=== PATIENT | female | born 1990 | race Caucasian/White ===

== ENCOUNTER → 2019-10-26 08:09 | Outpatient (CLI) | payer OTHER, SELFPAY ==
[2019-10-26 14:42] LABS: Urine N gonorrhoeae NOT DETECTED
[2019-10-26 14:47] LABS: Urine Chlamydia NOT DETECTED
== END ==
PROVIDERS: Visit Provider Obstetrics & Gynecology
DX: Z11.3 Encounter for screening for infections with a predominantly sexual mode of transmission (principal)
CPT/HCPCS: 87491; 87591

== ENCOUNTER → 2019-11-23 08:32 | Outpatient (CLI) | payer OTHER, SELFPAY ==
[2019-11-23 09:44] LABS: Appearance Urine UA CLEAR; Bilirubin Urine UA NEGATIVE (NEGATIVE); Color Urine UA YELLOW; Glucose Urine UA NEGATIVE (Negative); Ketones Urine UA NEGATIVE (NEGATIVE); Leukocyte Esterase Urine UA NEGATIVE (NEGATIVE); Nitrite Urine UA NEGATIVE (Negative); Occult Blood Urine UA NEGATIVE (Negative); Protein Urine UA NEGATIVE (Negative); Specific Gravity Urine UA 1.025 (1.000-1.035); Urobilinogen Urine UA 0.2 E.U./dL (0.2)
[2019-11-23 09:45] LABS: pH Urine UA 5.5 (4.5-8.0)
[2019-11-23 09:50] LABS: Add Manual Diff / Slide Review NO; Basophils Absolute Auto 0 /uL (0-100); Basophils Percent Auto 0.3 % (0-2); Eosinophils Absolute Auto 100 /uL (0-450); Eosinophils Percent Auto 1.2 % (2-4); Hematocrit 41.5 % (36-46); Hemoglobin 14.4 g/dL (12.0-16.0); Lymphocytes Absolute Auto 1600 /uL (1100-4500); Lymphocytes Percent Auto 19.1 % (25-40); Mean Corpuscular HGB Conc 34.8 % (30-36); Mean Corpuscular Hemoglobin 32.7 PG (26-34); Mean Corpuscular Volume 94.1 fL (80-100); Monocytes Absolute Auto 400 /uL (0-900); Monocytes Percent Auto 4.9 % (3-14); Neutrophils Absolute Auto 6300 /uL (1500-7000); Neutrophils Percent Auto 74.5 % (50-75); Platelet Count 257 X10^3/uL (150-400); Red Blood Cell Count 4.41 X10^6/uL (4.0-5.2); Red Cell Distribution Width 12.6 % (11.6-14.8); White Blood Cell Count 8.5 X10^3/uL (4.5-11.0)
[2019-11-23 17:34] LABS: Miscellaneous to LabCorp KIT TEST
[2019-11-24 05:10] LABS: RPR Screen Non Reactive (Non Reactive)
[2019-11-24 08:40] LABS: Varicella IgG Antibody 796 index (Immune >165)
[2019-11-24 16:24] LABS: Hepatitis B Surface Antigen NEGATIVE s/c (NEGATIVE); Rubella Antibody IgG 34.5 IU/mL (>15)
[2019-11-24 16:41] LABS: HIV 1 & 2 Ab/Ag 4th Gen Combo NEGATIVE (NEGATIVE); Hep C Virus Ab w/Reflex Quant NEGATIVE s/c (NEGATIVE)
== END ==
PROVIDERS: PCP Nurse Practitioner Family; Referring Provider Obstetrics & Gynecology; Visit Provider Obstetrics & Gynecology
DX: Z34.01 Encounter for supervision of normal first pregnancy, first trimester (principal); Z36.0 Encounter for antenatal screening for chromosomal anomalies
CPT/HCPCS: 36415; 80055; 81003; 86787; 86803; 86850; 86900; 86901; 87086; 87389

== ENCOUNTER → 2019-12-21 09:42 | Outpatient (CLI) | payer OTHER, SELFPAY ==
[2019-12-27 07:39] LABS: AFP Value 33.5 ng/mL (.); Insulin Dep Diabetes No (.); OSBR Risk 1IN 9231 (.); Results Report (.); Test Results *Screen Negative* (.)
== END ==
PROVIDERS: PCP Nurse Practitioner Family; Referring Provider Obstetrics & Gynecology; Visit Provider Obstetrics & Gynecology
DX: Z34.02 Encounter for supervision of normal first pregnancy, second trimester (principal); Z3A.16 16 weeks gestation of pregnancy
CPT/HCPCS: 36415; 82105

== ENCOUNTER → 2020-01-18 07:49 | Outpatient (CLI) | payer OTHER, SELFPAY ==
--- NOTE | 2020-01-18 07:50 | DI.US.S_ITS ---
PROCEDURE: US OB >= 14 WEEKS FETUS INDICATIONS: ANATOMY OUTSIDE/PRIOR DATING DATA: Last menstrual period (LMP): The 08/31/2019. LMP-based estimated date of delivery (NOE): 06/06/2020. First dating scan (date and location): 10/26/2019. Estimated date of delivery (NOE) from first dating scan: 06/06/2020. TECHNIQUE: Real-time scanning was performed of the fetus, with image documentation and biometric measurements. Endovaginal scanning: Not performed. COMPARISON: [facility], , OB <= 14 WEEKS FETUS, 11/23/2019, 8:25. FINDINGS: General: A single living intrauterine gestation is present. Presentation: Transverse, head maternal right. Placenta: Placental position is anterior, low lying. The inferior margin is 1.5 cm from the internal cervical os. Amniotic fluid index: 13.8 cm, normal range is 5-24 cm. heart rate: 144 beats per minute. Maternal cervical canal: 4.2 cm long. Normal lower limit is 2.5 cm. biometrics: Biparietal diameter: 4.8 cm, 20 weeks 4 days Head circumference: 18.0 cm, 20 weeks 3 days Abdominal circumference: 15.2 cm, 20 weeks 3 days Femur length: 3.3 cm, 20 weeks 3 days Estimated gestational age from initial scan: 20 weeks 0 days Composite gestational age from present scan: 20 weeks 3 days Estimated weight and percentile: 351 g, 68th percentile Measurement variability for biometric dating: +/- 7 days from 14 weeks to 15 weeks 6 days gestation, +/- 10 days from 16 weeks to 21 weeks 6 days gestation, +/- 2 weeks from 22 weeks to 27 weeks 6 days gestation, +/- 3 weeks for 28 weeks gestation or later. weight reference: 4500 g or EFW >90/95% is considered macrosomia or large for gestational age. EFW <10% is small for gestational age. EFW 5% or less is considered intra-uterine growth restriction. Anatomic survey: Neuro: Ventricles are non-dilated at less than 10 mm. Cisterna magna is normal at 3-11 mm. Cerebellum is normal in size and morphology. Nuchal skin fold: Normal at less than 6 mm between 14-21 weeks gestational age. Face: Nose and lips, facial profile are normal. Spine: No evidence for spina bifida. Heart: 4-chambered heart is present, with normal ventricular outflow tracts. Echogenic focus in the left ventricle measuring 0.3 cm. Diaphragm: Diaphragm is intact. Stomach: Left-sided stomach is present. Kidneys: No hydronephrosis. Normal is less than 5 mm in 2nd trimester, less than 7 mm in 3rd trimester. Cord: 3-vessel cord has orthotopic insertion. Bladder: Normal in size. Extremities: All 4 extremities identified. IMPRESSION: 1. [place] living intrauterine at 20 weeks 3 days based on today's ultrasound. This is concordant with the prior ultrasound. There is expected interval growth. 2. Normal amniotic fluid. Low lying placenta. -follow-up OB ultrasound is recommended. 3. Echogenic focus in the left ventricle noted. This is a soft marker for aneuploidy. -Recommend clinical correlation. Otherwise normal and complete anatomic survey. Dictated by: Harsha Ward M.D. on 01/18/2020 at 9:37 Approved by: Harsha Ward M.D. on 01/18/2020 at 9:44
== END ==
PROVIDERS: PCP Nurse Practitioner Family; Referring Provider Obstetrics & Gynecology; Visit Provider Obstetrics & Gynecology
DX: Z34.92 Encounter for supervision of normal pregnancy, unspecified, second trimester (principal); Z3A.20 20 weeks gestation of pregnancy
CPT/HCPCS: 76811

== ENCOUNTER → 2020-03-14 14:16 | Outpatient (CLI) | payer OTHER, SELFPAY ==
[2020-03-14 16:28] LABS: Hematocrit 36.9 % (36-46); Hemoglobin 12.6 g/dL (12.0-16.0)
[2020-03-14 16:48] LABS: GTT (PREG) 1 Hour PP 50gm Dose 142 mg/dL (76-139)
== END ==
PROVIDERS: PCP Nurse Practitioner Family; Referring Provider Obstetrics & Gynecology; Visit Provider Obstetrics & Gynecology
DX: Z34.02 Encounter for supervision of normal first pregnancy, second trimester (principal); Z3A.24 24 weeks gestation of pregnancy
CPT/HCPCS: 36415; 82950; 85014; 85018

== ENCOUNTER → 2020-03-20 07:49 | Outpatient (CLI) | payer OTHER, SELFPAY ==
[2020-03-20 08:59] LABS: Glucose Fasting 91 mg/dL (70-100)
[2020-03-20 10:29] LABS: Glucose 1 Hour 132 mg/dL (70-170)
[2020-03-20 10:40] LABS: Glucose 2 Hour 123 mg/dL (70-140)
[2020-03-20 10:51] LABS: Glucose Tol Interpretation INTERPRETATION
[2020-03-20 11:59] LABS: Glucose 3 Hour 118 mg/dL (70-115)
== END ==
PROVIDERS: PCP Nurse Practitioner Family; Referring Provider Obstetrics & Gynecology; Visit Provider Obstetrics & Gynecology
DX: O99.810 Abnormal glucose complicating pregnancy (principal)
CPT/HCPCS: 36415; 82951; 82952

== ENCOUNTER 2020-04-27 13:56 | Observation (INO) | payer OTHER, SELFPAY ==
[2020-04-27] MEDS: NIFEdipine 10 MG CAPSULE PO ×4 (14:29→15:30)
[2020-04-27 14:35] LABS: Appearance Urine UA CLEAR; Bacteria Urine None Seen; Bilirubin Urine UA NEGATIVE (NEGATIVE); Color Urine UA YELLOW; Glucose Urine UA NEGATIVE (Negative); Ketones Urine UA 1+ (NEGATIVE); Leukocyte Esterase Urine UA NEGATIVE (NEGATIVE); Nitrite Urine UA NEGATIVE (Negative); Occult Blood Urine UA NEGATIVE (Negative); Protein Urine UA NEGATIVE (Negative); RBC Urine None Seen (0-5/HPF); Specific Gravity Urine UA <=1.005 (1.000-1.035); Urobilinogen Urine UA 0.2 E.U./dL (0.2)
[2020-04-27 14:46] LABS: Culture Indicated Urine Cult Not Indicated; Squamous Epithelial Cell Urine 5-10 /HPF (0-5/HPF); WBC Urine 1-5/HPF (0-5/HPF)
== END 2020-04-27 16:20 | disposition home or self-care (01) ==
PROVIDERS: Admitting Provider Obstetrics & Gynecology; PCP Nurse Practitioner Family; Referring Provider Obstetrics & Gynecology; Visit Provider Obstetrics & Gynecology
DX: O47.03 False labor before 37 completed weeks of gestation, third trimester (principal); Z3A.34 34 weeks gestation of pregnancy
CPT/HCPCS: 59025; 59050; 81001; G0378; G0379

== ENCOUNTER 2020-04-28 15:39 | Outpatient (CLI) | payer OTHER, SELFPAY ==
--- NOTE | 2020-04-28 15:58 | DI.US.S_ITS ---
PROCEDURE: US OB LIMITED INDICATIONS: CONTRACTIONS; CERVICAL LENGTH OUTSIDE/PRIOR DATING DATA: Last menstrual period (LMP): 09/10/2019. LMP-based estimated date of delivery (NOE): 06/06/2020. First dating scan (date and location): 10/26/2019 Estimated date of delivery (NOE) from first dating scan: 06/06/2020 TECHNIQUE: Real-time scanning was performed of the fetus, with image documentation. Endovaginal scanning: Was performed for better visualization COMPARISON: None. FINDINGS: A single live intrauterine gestation is present. Presentation: Vertex. Placenta: Placental position is anterior, without previa. Amniotic fluid index: 14.2 cm, normal range is 5-24 cm. heart rate: 141 beats per minute. Maternal cervical canal: 4.3 cm long. Normal lower limit is 2.5 cm. Estimated gestational age from initial scan: 34 weeks 3 days. IMPRESSION: The cervical length is 4.3 cm. Dictated by: Lane Macias M.D. on 04/28/2020 at 15:47 Approved by: Lane Macias M.D. on 04/28/2020 at 15:49
--- NOTE | 2020-04-28 16:06 | PM.OBTRLD ---
Visit Information Visit Information Date of evaluation: 04/28/20 Primary OB Provider: Enedina Gray On-call OB Provider: Saima Torres Comments/Additional reasons for admission: 30YO G1@ 34wks 3 days by LMP and early US presenting for evaluation of contractions. Was seen yesterday for same, treated w/ nifedipine x 4 doses with good resolution of cramping and closed cervix. Non-painful tightening started again this morning after waking around 8am and has persisted Q3-5 minutes all day. +FM. No VB or LOF. PFSH Medical History (Updated 04/28/20 @ 16:48 by Saima Torres CNM) Chicken pox (~1995) Family history of colon cancer in mother Finger fracture Fracture of multiple toes Fractures Infertility (10/2018) Migraines (~2005) Surgical History (Updated 10/24/19 @ 14:33 by Merissa Hughes RN) Anesthesia H/O wisdom tooth extraction (~2005) History of tonsillectomy Torn medial meniscus (~03/2011) Family History (Updated 10/24/19 @ 14:28 by Merissa Hughes RN) Father Diverticulitis Asthma Mother Colon cancer PCOS (polycystic ovarian syndrome) Grandfather Cancer Diabetes mellitus History of heart disease Hypertension Grandmother Diabetes mellitus Hypertension Grandfather Hepatic necrosis Alcoholic Grandmother Hypertension Family estrangement Altered cardiac tissue perfusion Brother No known health problems Family/Other Diabetes mellitus Social History marital status: household members: spouse pets and animals: Yes (X 1 Cat) education level: master's degree occupational status: employed current occupational exposures/hazards: No Previous occupational history: [employer] special etta needs: No Smoking Status: Never smoker second hand exposure: No alcohol intake: former (Pre- : 2-3 drinks/week ) substance use type: does not use Review of Systems Review of Systems ROS: Yes All systems reviewed with the patient and are negative except as otherwise documented Exam Vital Signs (past 8 hours): BP 124/69, HR 111bpm, T36.8C Temporal Manual OB Exam: dilated (0) Presentation: vertex Objective Imaging Cervical length US: My impression: Cephalic lie, GLORIA-14cm, CL-4.3cm Evaluation Evaluation Baseline heart rate: 135 Variability: Moderate (11-25) monitor accelerations: Present monitor decelerations: Absent Contraction Frequency (minutes): 3 Uterine Contraction Intensity: Mild Status: Category l Cervical dilation (cm): 0 station: -4 Comments: fFN collected, then gentle CE Diagnosis, Plan/Disposition Final Diagnosis (1) uterine contractions in third trimester, antepartum: Status: Acute Problem details: labor ruled out Plan/Disposition Plan: Reassurance of no cervical change from 20 week US given. Discussed this uterine activity/intensity is her new normal and encouraged her to call for an increase in intensity or discomfort. labor warning sx reviewed. Follow-up w/ OB/ on Thursday05/02/20, as previously scheduled. OB Disposition: home
[2020-04-28 16:40] LABS: Fetal Fibronectin Negative
== END 2020-04-28 17:00 | disposition home or self-care (01) ==
LOC: OB 05-01 07:49
PROVIDERS: PCP Nurse Practitioner Family; Referring Provider Nurse Practitioner Obstetrics & Gynecology; Visit Provider Nurse Practitioner Obstetrics & Gynecology
DX: O47.03 False labor before 37 completed weeks of gestation, third trimester (principal); Z3A.34 34 weeks gestation of pregnancy
CPT/HCPCS: 59025; 76815; 82731; G0378; G0379

== ENCOUNTER → 2020-05-02 14:48 | Outpatient (CLI) | payer OTHER, SELFPAY ==
[2020-05-03 13:14] LABS: Strep Grp B PCR NEG for Grp B Strep
== END ==
PROVIDERS: PCP Nurse Practitioner Family; Visit Provider Obstetrics & Gynecology
DX: Z34.03 Encounter for supervision of normal first pregnancy, third trimester (principal); Z3A.35 35 weeks gestation of pregnancy
CPT/HCPCS: 87653

== ENCOUNTER 2020-05-07 09:53 | Outpatient (CLI) | payer OTHER, SELFPAY ==
--- NOTE | 2020-05-07 10:31 | P.TNLD_ITS ---
Visit Information Visit Information Date of evaluation: 05/07/20 Primary OB Provider: Enedina Gray Reason for Evaluation: Yes rupture of membranes Comments/Additional reasons for admission: 30yo at 35w5d here due to concerns for ROM. Pt reports feeling a large leak of fluid earlier this morning. It lasted for a few minutes, and then stopped. She denies vaginal bleeding. She is feeling her baby move regularly. She feels occasional abdominal tightening but it is not painful. [facility] Medical History (Updated 05/07/20 @ 11:21 by Joy Wilcox MD) Chicken pox (~1995) Family history of colon cancer in mother Finger fracture Fracture of multiple toes Fractures Infertility (10/2018) Migraines (~2005) Surgical History (Updated 10/24/19 @ 14:33 by Merissa Hughes RN) Anesthesia H/O wisdom tooth extraction (~2005) History of tonsillectomy Torn medial meniscus (~03/2011) Family History (Updated 10/24/19 @ 14:28 by Merissa Hughes RN) Father Diverticulitis Asthma Mother Colon cancer PCOS (polycystic ovarian syndrome) Grandfather Cancer Diabetes mellitus History of heart disease Hypertension Grandmother Diabetes mellitus Hypertension Grandfather Hepatic necrosis Alcoholic Grandmother Hypertension Family estrangement Altered cardiac tissue perfusion Brother No known health problems Family/Other Diabetes mellitus Social History marital status: household members: spouse pets and animals: Yes (X 1 Cat) education level: master's degree occupational status: employed current occupational exposures/hazards: No Previous occupational history: [employer] special etta needs: No Smoking Status: Never smoker second hand exposure: No alcohol intake: former (Pre- : 2-3 drinks/week ) substance use type: does not use Evaluation Evaluation Baseline heart rate: 160 Variability: Moderate (11-25) monitor accelerations: Present monitor decelerations: Absent Non-invasive Membranes Rupture Test: negative Comments: Irregular contractions spaced > 8 minutes apart, not regularly felt by patient Diagnosis, Plan/Disposition Final Diagnosis (1) 35 weeks gestation of : Status: Acute (2) Amniotic fluid leaking: Status: Acute Plan/Disposition Plan: 30yo at 35w5d here due to concerns for ROM. Amnisure negative. No significant fluid present on exam, pt not wearing pad. Negative work-up for ROM. Rare contractions seen on monitoring not felt as painful by patient. Safe for d/c home. OB Disposition: home
== END 2020-05-07 10:35 | disposition home or self-care (01) ==
LOC: LABOR 10:13 → OB 13:09
PROVIDERS: PCP Nurse Practitioner Family; Referring Provider Obstetrics & Gynecology; Visit Provider Obstetrics & Gynecology
DX: O47.03 False labor before 37 completed weeks of gestation, third trimester (principal); N89.8 Other specified noninflammatory disorders of vagina; Z3A.35 35 weeks gestation of pregnancy
CPT/HCPCS: 59025; 84112; G0378; G0379

== ENCOUNTER → 2020-06-05 16:55 | Outpatient (CLI) | payer OTHER, SELFPAY ==
[2020-06-05 17:25] LABS: COVID19 -Nasal RAPID Negative (Negative)
== END ==
PROVIDERS: PCP Nurse Practitioner Family; Visit Provider Obstetrics & Gynecology
DX: Z01.812 Encounter for preprocedural laboratory examination (principal); Z20.822 Contact with and (suspected) exposure to COVID-19
CPT/HCPCS: 87635

== ENCOUNTER 2020-06-06 18:25 | Inpatient (IN) | payer OTHER, SELFPAY ==
--- NOTE | 2020-06-06 18:28 | P.HPOB_ITS ---
OB HPI Date/Time Date of admission: 06/06/20 Date Patient Seen: 06/06/20 Time Patient Seen: 18:28 History of Present Condition Chief complaint: eval of labor : 1 Para: 0 Estimated Date of Delivery: 06/06/20 Estimated Gestational Age (weeks): 40 Narrative: Zuly Shepard is a 30 year old female 1 para 0 at 40 weeks gestation for cervical ripening and Pitocin induction of labor Large for gestational age Indications Indication for induction OB: other (Large for gestational age ) History of Present care: good care, initiated at week # (8), number of visits (13) and pounds weight gain (34) Dating criteria: LMP confirmed by 1st trimester US Ultrasounds: normal 1st trimester US and normal mid trimester US Obstetrical complications: none Medical complications: none Preadmission Labs Blood type: O (+) positive -: Antibody screen: negative, GBS status: negative, HBsAG: negative, HIV: negative and RPR/VDLR: negative -: Chlamydia screen: not detected and Gonorrhea screen: not detected -: Rubella: immune and Varicella: immune HCT: 36.9 HCAB: negative PAP: Normal Cell-free DNA: Normal female AFP negative Urine: Negative 1 hr GTT: 142 3 hr GTT: 1 hr (132), 2 hr (123) and 3 hr (118) Fasting blood glucose: 91 Evaluation Evaluation Baseline heart rate: 135 Variability: Moderate (11-25) monitor accelerations: Present monitor decelerations: Absent Cervical dilation (cm): 0 Cervical effacement (%): 80 station: -1 COUNT INCLUDES THE [facility] Medical History (Updated 05/09/20 @ 07:16 by Enedina Gray MD) Chicken pox (~1995) Family history of colon cancer in mother Finger fracture Fracture of multiple toes Fractures Infertility (10/2018) Migraines (~2005) Surgical History (Updated 10/24/19 @ 14:33 by Merissa Hughes RN) Anesthesia H/O wisdom tooth extraction (~2005) History of tonsillectomy Torn medial meniscus (~03/2011) Family History (Updated 10/24/19 @ 14:28 by Merissa Hughes RN) Father Diverticulitis Asthma Mother Colon cancer PCOS (polycystic ovarian syndrome) Grandfather Cancer Diabetes mellitus History of heart disease Hypertension Grandmother Diabetes mellitus Hypertension Grandfather Hepatic necrosis Alcoholic Grandmother Hypertension Family estrangement Altered cardiac tissue perfusion Brother No known health problems Family/Other Diabetes mellitus Social History marital status: household members: spouse pets and animals: Yes (X 1 Cat) education level: master's degree occupational status: employed current occupational exposures/hazards: No Previous occupational history: [employer] special etta needs: No Smoking Status: Never smoker second hand exposure: No alcohol intake: former (Pre- : 2-3 drinks/week ) substance use type: does not use Meds Home Medications and Allergies Home Medications Medication Instructions Recorded Confirmed Type prenat.vits,kristian,jan-fxmt-vjdci 1 tab PO DAILY 10/03/19 06/06/20 History Allergies Allergy/AdvReac Type Severity Reaction Status Date / Time Sulfa (Sulfonamide Allergy Intermediate hives Verified 06/06/20 21:02 Antibiotics) Exam Vital Signs (past 8 hours): Generally: No acute distress FH: 40 cm EFW: 9# 5oz EXT: trace edema, 1+ DTR's Objective Labs Result Diagrams: 06/06/20 20:21 Assessment and Plan Assessment and Plan Assessment and Plan narrative: Assessment: 30-year-old 1 para 0 at 40 weeks gestation status post 1 dose of Cervidil Favorable cervix Large for gestational age Plan: Pitocin per protocol 1 Epidural as necessary AROM when able Expected management to spontaneous vaginal delivery Time Spent with Patient Total time spent with greater than 50% in coordination of care (as documented) at patient's floor/unit and/or counseling patient:: 15-24 minutes
[2020-06-06 19:28] VITALS: BP 121/74
[2020-06-06] MEDS: DINOPROSTONE VAG (CERVIDIL) 10 MG VAG (19:46)
[2020-06-06 20:24] LABS: Add Manual Diff / Slide Review NO; Basophils Absolute Auto 0 /uL (0-100); Basophils Percent Auto 0.4 % (0-2); Eosinophils Absolute Auto 100 /uL (0-450); Eosinophils Percent Auto 0.8 % (2-4); Hematocrit 38.1 % (36-46); Hemoglobin 13.6 g/dL (12.0-16.0); Lymphocytes Absolute Auto 2200 /uL (1100-4500); Lymphocytes Percent Auto 23.5 % (25-40); Mean Corpuscular HGB Conc 35.6 % (30-36); Mean Corpuscular Hemoglobin 33.7 PG (26-34); Mean Corpuscular Volume 94.7 fL (80-100); Monocytes Absolute Auto 700 /uL (0-900); Monocytes Percent Auto 7.6 % (3-14); Neutrophils Absolute Auto 6300 /uL (1500-7000); Neutrophils Percent Auto 67.7 % (50-75); Platelet Count 199 X10^3/uL (150-400); Red Blood Cell Count 4.03 X10^6/uL (4.0-5.2); White Blood Cell Count 9.3 X10^3/uL (4.5-11.0)
[2020-06-07] MEDS: ZOLPIDEM 5 MG TABLET PO
[2020-06-07] MEDS: OXYTOCIN PREMIX 30 UNIT/500 ML PLAST..BAG IV (08:50)
[2020-06-07] MEDS: LACTATED RINGERS 1,000 ML 100 ML IV ×2 (08:50→20:57)
--- NOTE | 2020-06-07 10:50 | PM.OBPNLAB ---
Date/Time Date Patient Seen: 06/07/20 Time Patient Seen: 07:35 Pain Control Pain control: tolerating well Pelvic Exam Dilation (cm): 1 Effacement (%): 85 station: -1 Amniotic membrane status: Intact Contractions Contractions on admission: none Monitor mode: External Contraction frequency (min): 3 Contraction pattern: Regular Contraction intensity: Mild Status status: Category l Heart Rate Baseline: 135 Monitor Accelerations: Present Monitor Decelerations: Absent Monitor Variability: Moderate Assessment and Plan Assessment: induction ongoing Plan: begin patient augmentation Comments: AROM when able Epidural prn
--- NOTE | 2020-06-07 10:51 | PM.OBPNLAB ---
Date/Time Date Patient Seen: 06/07/20 Time Patient Seen: 10:15 Pelvic Exam Dilation (cm): 1 Effacement (%): 85 station: -1 Amniotic membrane status: Intact Contractions Monitor mode: External Pitocin rate (mU/min): 1 Contraction frequency (min): 2 Contraction pattern: Regular Contraction intensity: Moderate Status status: Category l Heart Rate Baseline: 130 Monitor Accelerations: Present Monitor Decelerations: Absent Monitor Variability: Moderate Assessment and Plan Assessment: induction ongoing Plan: continuous present management
[2020-06-07] MEDS: FENT 2MCG/ML BUPIV 0.125% EPI 200 MCG/100 ML PLAST..BAG 8 MCG EPIDURAL (19:58)
[2020-06-08] MEDS: FENT 2MCG/ML BUPIV 0.125% EPI 200 MCG/100 ML PLAST..BAG 8 MCG EPIDURAL (01:50)
[2020-06-08] MEDS: LACTATED RINGERS 1,000 ML 100 ML IV (05:20)
[2020-06-08] MEDS: CEFAZOLIN 2 GM/100 ML FROZ.PIGGY IV (06:00)
--- NOTE | 2020-06-08 07:57 | PM.OBPNLAB ---
Date/Time Date Patient Seen: 06/07/20 Time Patient Seen: 19:00 Pain Control Pain control: epidural Pelvic Exam Dilation (cm): 3 Effacement (%): 85 station: -1 Amniotic membrane status: Ruptured Contractions Contractions on admission: none Monitor mode: External Pitocin rate (mU/min): 6 Contraction frequency (min): 2 Contraction duration (min): 1 Contraction pattern: Regular Contraction intensity: Strong/Firm Status status: Category l Heart Rate Baseline: 135 Monitor Accelerations: Present Monitor Decelerations: Absent Monitor Variability: Moderate Assessment and Plan Assessment: induction ongoing Comments: Intrauterine pressure catheter placed to assess adequacy of contractions
--- NOTE | 2020-06-08 07:59 | PM.OBPNLAB ---
Date/Time Date Patient Seen: 06/08/20 Time Patient Seen: 06:50 Pain Control Pain control: epidural Pelvic Exam Dilation (cm): 10 Effacement (%): 100 station: +2 Amniotic membrane status: Ruptured Contractions Contractions on admission: none Monitor mode: External Pitocin rate (mU/min): 18 Contraction frequency (min): 3 Contraction duration (min): 1 Contraction pattern: Regular Contraction intensity: Strong/Firm Intrauterine tone measurement: 180 Status status: Category l Heart Rate Baseline: 135 Monitor Accelerations: Present Monitor Decelerations: Absent Monitor Variability: Moderate Assessment and Plan Assessment: induction ongoing Comments: Begin pushing Expectant management to
--- NOTE | 2020-06-08 10:17 | PM.OBPRVD ---
Events: Other (LGA baby) Labor & Delivery Delivery date: 06/08/20 Intrapartal Events: Prolonged Latent Phase and Prolonged Active Phase Cervical ripening method: per Cervidil protocol Induction method: per pitocin protocol Delivery augmentation: rupture of membranes Delivery monitor: external FHT and external uterine Route of delivery: Episiotomy description: None L&D Laceration Description: Vaginal - 1st Degree and Superficial (periurethral) Delivery repair: chromic Estimated blood loss (mL): 150 Anesthesia Type: Epidural and Local Complications: None Narrative: Patient complete and pushed for 2 hours and 10 minutes. At 9:47 a.m., a live female infant delivered spontaneously over an intact perineum in the EMILIANO presentation. A loose nuchal cord x1 was reduced on the perineum. The remainder of the body delivered without difficulty and was placed on mom's abdomen. Once the cord stopped pulsing, the cord was double clamped and cut. Cord bloods were obtained. Pitocin was given in the IV fluids. Placenta delivered intact with a three-vessel cord at 10:05 a.m.. The fundus was massaged to firm. There were a few small clots expressed. There was a first-degree vaginal laceration which was repaired with 2-0 chromic in a running interlocking fashion. There were bilateral superficial periurethral tears which were repaired with 4 0 chromic in a running interlocking fashion. Hemostasis was achieved. Apgars 7 at 1 minute and 9 at 5 minutes. Epidural analgesia. . Mom and infant stable to recovery. Baby 1: Infant gender: Female Presentation: vertex Position: Left Occiput Anterior Placenta delivery description: Spontaneous and Normal Configuration Cord Vessel Description: 3 Vessels, Nuchal Cord, Loose, Reduced and Clamped/Cut score (1 min): 7 score (5 min): 9 weight: 8 lb 12 oz Plan for aftercare: Routine care
[2020-06-08 11:42] VITALS: TEMP 38
[2020-06-08] MEDS: ACETAMINOPHEN 325 MG TABLET 650 MG PO ×2 (11:42→17:56)
[2020-06-08 11:43] VITALS: TEMP 38
[2020-06-08] MEDS: IBUPROFEN 600 MG TABLET PO ×2 (11:43→17:55)
[2020-06-08] MEDS: METHYLERGONOVINE 0.2 MG TABLET PO (11:44)
[2020-06-08] MEDS: DERMOPLAST SPRAY 20% 60 ML 1 SPRAY TOP (11:45)
[2020-06-08] MEDS: LANOLIN OINT 7 GM 1 APPLIC TOP (15:41)
[2020-06-09] MEDS: IBUPROFEN 600 MG TABLET PO ×2 (04:55→10:42)
[2020-06-09] MEDS: ACETAMINOPHEN 325 MG TABLET 650 MG PO ×2 (04:56→10:43)
[2020-06-09 05:10] LABS: Hematocrit 35.9 % (36-46); Hemoglobin 12.4 g/dL (12.0-16.0)
[2020-06-09] MEDS: PRENATAL VIT,CALC/IRON/FOLIC 1 TABLET 1 TAB PO (09:39)
[2020-06-09] MEDS: DOCUSATE 100 MG CAPSULE PO (09:39)
[2020-06-09 10:23] VITALS: BP 121/74; PULSE 84; RESP 18; TEMP 36.9
--- NOTE | 2020-06-09 10:23 | PM.OBDS.1 ---
Discharge Providers Provider Date of admission: 06/06/20 18:25 Discharge Date: 06/09/20 Primary care physician: BUZZ Clifford Consults: 06/09/20 10:14 Consult to Retail Business Development Manager Routine Comment: Discharge provider: Enedina Gray MD Summary Hospital Course Date Patient Seen: 06/09/20 Time Patient Seen: 10:23 Diagnoses: 40 weeks gestation Cervidil Cervical ripening Pitocin induction of labor Artificial rupture of membranes Epidural analgesia Spontaneous vaginal delivery First degree laceration and repair Hospital Course: Patient is a 30-year-old 1 para 1 who presented on June 06, 2020 for Cervidil cervical ripening. On the morning of June 07, 2020 her cervix was favorable. She was started on Pitocin. Artificial rupture of membranes was performed late morning. The patient received an epidural for pain management. An intrauterine pressure catheter was placed at 7:00 p.m. to assess adequacy of contractions. She progressed slowly from 3-4 cm when the pressure catheter was placed to 10 cm the next morning at 6:40 a.m.. She pushed for a little over 2 hours. She had a spontaneous vaginal delivery without complication. She had a first-degree laceration and repair. Her course was unremarkable. She is discharged home on day # 1. Peripartum Data Infant Delivery Method: Natural Vaginal Laceration Description: Vaginal - 1st Degree and Superficial (periurethral) Episiotomy description: None Procedures: Cervidil cervical ripening Pitocin induction of labor Artificial rupture of membranes Intrauterine pressure catheter Epidural analgesia Spontaneous vaginal delivery First degree laceration and repair complications: none 1: Gender: Female Disposition of : home Status at Discharge Cognitive/behavioral status at discharge: oriented Functional status at discharge: independent ambulation Overall status at discharge: patient is progressing back to baseline Time Spent with Patient Time attestation: Total time spent providing and/or coordinating discharge services: Time spent: Less than 30 minutes Objective Labs Result Diagrams: 06/09/20 05:00 Labs: Laboratory Results - last 24 hr 06/09/20 05:00 Hgb 12.4 Hct 35.9 L Exam Vital Signs (past 8 hours): Generally: Patient walking around in room, no acute distress Fundus: Firm U -1 Extremities: 1+ edema, negative Homans Discharge Plan Discharge Plan Patient Disposition: Home Provider Discharge Comment: Call with fever, chills or bleeding vaginally more than a pad in an hour Ibuprofen 600mg every 6 hours as needed for cramping Tylenol 650mg every 6 hours as needed Discharge orders & Medications Prescriptions: Continued prenat.vits,kristian,qds-nysl-ogymz Tablet 1 tab PO DAILY RF: 0 Follow up/Referrals: Enedina Gray MD [Physician] - 6 Weeks (Dr Hughes nurse will call you with appointment for 6 weeks ) Diet/Activity/Treatments Diet: Regular Activity: No intercourse for 6 weeks Skin/Wound/Dressing Care Report to your healthcare provider any signs of infection, such as:: chills, fever, increased pain and unusual drainage Visit Report/Discharge Packet Instructions: DI for Labor and Delivery, Vaginal Stand Alone Forms: Discharge: Care Discharge Data Primary Care Provider: Shawna Regan
== END 2020-06-09 13:30 | disposition home or self-care (01) | DRG 807 ==
PROVIDERS: Admitting Provider Obstetrics & Gynecology; PCP Nurse Practitioner Family; Referring Provider Obstetrics & Gynecology; Visit Provider Obstetrics & Gynecology
DX: O48.0 Post-term pregnancy (principal); Z37.0 Single live birth; Z3A.40 40 weeks gestation of pregnancy; O63.1 Prolonged second stage (of labor); O70.0 First degree perineal laceration during delivery; O69.81X0 Labor and delivery complicated by cord around neck, without compression, not applicable or unspecified; O71.82 Other specified trauma to perineum and vulva
CPT/HCPCS: 01967; 36415; 59050; 59400; 85014; 85018; 85025; 86850; 86900; 86901; G0379; J0690; J2590

== ENCOUNTER → 2021-05-29 09:53 | Outpatient (CLI) | payer OTHER, SELFPAY ==
[2021-05-29 10:29] LABS: Specimen Label NATERA KIT
[2021-05-29 10:31] LABS: Appearance Urine UA CLEAR; Bilirubin Urine UA NEGATIVE (NEGATIVE); Color Urine UA YELLOW; Glucose Urine UA NEGATIVE (Negative); Ketones Urine UA NEGATIVE (NEGATIVE); Leukocyte Esterase Urine UA TRACE (NEGATIVE); Nitrite Urine UA NEGATIVE (Negative); Occult Blood Urine UA NEGATIVE (Negative); Protein Urine UA NEGATIVE (Negative); Specific Gravity Urine UA >=1.030 (1.000-1.035); Urobilinogen Urine UA 0.2 E.U./dL (0.2)
[2021-05-29 10:38] LABS: Bacteria Urine Moderate (10-30); Culture Indicated Urine Cult Not Indicated; RBC Urine None Seen (0-5/HPF); Squamous Epithelial Cell Urine 5-10 /HPF (0-5/HPF); WBC Urine 1-5/HPF (0-5/HPF)
[2021-05-29 11:13] LABS: Add Manual Diff / Slide Review NO; Basophils Absolute Auto 0 /uL (0-100); Basophils Percent Auto 0.5 % (0-2); Eosinophils Absolute Auto 100 /uL (0-450); Eosinophils Percent Auto 1.9 % (2-4); Hematocrit 40.9 % (36-46); Hemoglobin 14.3 g/dL (12.0-16.0); Lymphocytes Absolute Auto 1900 /uL (1100-4500); Lymphocytes Percent Auto 24.9 % (25-40); Mean Corpuscular HGB Conc 34.8 % (30-36); Mean Corpuscular Hemoglobin 32.2 PG (26-34); Mean Corpuscular Volume 92.4 fL (80-100); Monocytes Absolute Auto 500 /uL (0-900); Monocytes Percent Auto 6.5 % (3-14); Neutrophils Absolute Auto 5000 /uL (1500-7000); Neutrophils Percent Auto 66.2 % (50-75); Platelet Count 253 X10^3/uL (150-400); Red Blood Cell Count 4.43 X10^6/uL (4.0-5.2); Red Cell Distribution Width 12.8 % (11.6-14.8); White Blood Cell Count 7.6 X10^3/uL (4.5-11.0)
[2021-05-30 03:38] LABS: RPR Screen Non Reactive (Non Reactive)
[2021-05-30 12:03] LABS: Varicella IgG Antibody 714 index (Immune >165)
[2021-05-30 16:05] LABS: HIV 1 & 2 Ab/Ag 4th Gen Combo NEGATIVE (NEGATIVE); Hep C Virus Ab w/Reflex Quant NEGATIVE s/c (NEGATIVE); Hepatitis B Surface Antigen NEGATIVE s/c (NEGATIVE); Rubella Antibody IgG 43.6 IU/mL (>15)
== END ==
PROVIDERS: PCP Nurse Practitioner Family; Referring Provider Obstetrics & Gynecology; Visit Provider Obstetrics & Gynecology
DX: Z36.0 Encounter for antenatal screening for chromosomal anomalies (principal); Z34.80 Encounter for supervision of other normal pregnancy, unspecified trimester
CPT/HCPCS: 80055; 81003; 81015; 86787; 86803; 86850; 86900; 86901; 87086; 87389

== ENCOUNTER → 2021-06-17 13:37 | Outpatient (CLI) | payer OTHER, SELFPAY ==
[2021-06-17 15:11] LABS: Urine N gonorrhoeae NOT DETECTED
[2021-06-17 15:16] LABS: Urine Chlamydia NOT DETECTED
== END ==
PROVIDERS: PCP Nurse Practitioner Family; Visit Provider Obstetrics & Gynecology
DX: Z34.81 Encounter for supervision of other normal pregnancy, first trimester (principal); Z3A.13 13 weeks gestation of pregnancy
CPT/HCPCS: 87491; 87591

== ENCOUNTER → 2021-07-15 14:13 | Outpatient (CLI) | payer OTHER, SELFPAY ==
[2021-07-17 23:02] LABS: AFP Value 40.2 ng/mL (.); Gest Age on Col Date 17.1 weeks (.); Gestational Age Ultrasound (.); Insulin Dep Diabetes No (.); OSBR Risk 1IN 8933 (.); Results Report (.); Test Results *Screen Negative* (.)
== END ==
PROVIDERS: PCP Nurse Practitioner Family; Referring Provider Obstetrics & Gynecology; Visit Provider Obstetrics & Gynecology
DX: Z34.82 Encounter for supervision of other normal pregnancy, second trimester (principal); Z3A.17 17 weeks gestation of pregnancy
CPT/HCPCS: 36415; 82105

== ENCOUNTER → 2021-08-05 14:41 | Outpatient (CLI) | payer OTHER, SELFPAY ==
--- NOTE | 2021-08-05 14:43 | DI.US.S_ITS ---
PROCEDURE: US OB >= 14 WEEKS FETUS INDICATIONS: ANATOMY SCAN OUTSIDE/PRIOR DATING DATA: First dating scan (date and location): 05/20/2021. Estimated date of delivery (NOE) from first dating scan: 12/22/2021. The calculations are made using the ultrasound NOE of 12/22/2021. TECHNIQUE: Real-time scanning was performed of the fetus, with image documentation and biometric measurements. COMPARISON: [facility], , US OB <= 14 WEEKS FETUS, 06/17/2021, 8:56. [facility], [place], US OB >= 14 WEEKS FETUS, 06/05/2020, 16:47. FINDINGS: General: A single living intrauterine gestation is present. Presentation: Breech. Placenta: Placental position is anterior , without previa. Amniotic fluid index: 8.6 cm, normal range is 5-24 cm. heart rate: 140 beats per minute. Maternal cervical canal: 5.0 cm long. Normal lower limit is 2.5 cm. biometrics: Biparietal diameter: 20 weeks 3 days Head circumference: 20 weeks 2 days Abdominal circumference: 20 weeks 1 day Femur length: 21 weeks 3 days Clinically estimated gestational age: 20 weeks 1 day Composite gestational age from present scan: 20 weeks 4 days Estimated weight and percentile: 366 g; 73rd percentile Anatomic survey: Neuro: Ventricles are non-dilated at less than 10 mm. Cisterna magna is normal at 3-11 mm. Cerebellum is normal in size and morphology. Nuchal skin fold: Normal at less than 6 mm between 14-21 weeks gestational age. Face: Not well visualized secondary to positioning. Cleft lip cannot be excluded. Spine: No evidence for spina bifida. Heart: 4-chambered heart is present, with normal ventricular outflow tracts. Diaphragm: Diaphragm is intact. Stomach: Left-sided stomach is present. Kidneys: No hydronephrosis. Normal is less than 5 mm in 2nd trimester, less than 7 mm in 3rd trimester. Cord: 3-vessel cord has orthotopic insertion. Bladder: Normal in size. Extremities: All 4 extremities identified. IMPRESSION: 1. Single living IUP redemonstrated and interval growth is normal. 2. face is suboptimally visualized; otherwise normal anatomic survey. Follow-up is recommended. We strive to produce accurate, complete, and clear reports of imaging services. To assist us in improving patient care, this report was composed using standard report templates and voice recognition software. Therefore, it may contain abnormal punctuation, insertions and/or omissions. Occasional wrong-word or sound-alike substitutions may occur. Though we review the report and make efforts to correct it, we do recommend that the report be read carefully in proper context to recognize any text inaccuracies. Dictated by: Jaxon DALTON Interpreted: Chas Barrientos MD on 08/05/2021 at 16:32 Transcribed by: JOVON on 08/05/2021 at 16:34 Approved by: Chas Barrientos M.D. on 08/05/2021 at 17:17
== END ==
PROVIDERS: PCP Nurse Practitioner Family; Referring Provider Obstetrics & Gynecology; Visit Provider Obstetrics & Gynecology
DX: Z34.82 Encounter for supervision of other normal pregnancy, second trimester (principal); Z3A.20 20 weeks gestation of pregnancy
CPT/HCPCS: 76811

== ENCOUNTER 2021-09-03 11:19 | Outpatient (CLI) | payer OTHER, SELFPAY ==
[2021-09-03 13:10] LABS: Appearance Urine UA CLEAR; Bilirubin Urine UA NEGATIVE (NEGATIVE); Color Urine UA YELLOW; Glucose Urine UA NEGATIVE (Negative); Ketones Urine UA 1+ (NEGATIVE); Leukocyte Esterase Urine UA NEGATIVE (NEGATIVE); Nitrite Urine UA NEGATIVE (Negative); Occult Blood Urine UA NEGATIVE (Negative); Protein Urine UA NEGATIVE (Negative); Urobilinogen Urine UA 0.2 E.U./dL (0.2)
[2021-09-03 13:39] LABS: Bacteria Urine Moderate (10-30); Culture Indicated Urine Cult Not Indicated; RBC Urine None Seen (0-5/HPF); Squamous Epithelial Cell Urine 10-30 /HPF (0-5/HPF); WBC Urine 0-1/HPF (0-5/HPF)
== END 2021-09-03 12:14 | disposition home or self-care (01) ==
LOC: LABOR 11:38 → OB 09-04 10:36
PROVIDERS: PCP Nurse Practitioner Family; Referring Provider Obstetrics & Gynecology; Visit Provider Obstetrics & Gynecology
DX: O47.02 False labor before 37 completed weeks of gestation, second trimester (principal); Z3A.24 24 weeks gestation of pregnancy
CPT/HCPCS: 59025; 81001; G0378; G0379

== ENCOUNTER → 2021-09-10 09:27 | Outpatient (CLI) | payer OTHER, SELFPAY ==
[2021-09-10 11:54] LABS: Hematocrit 38.4 % (36-46); Hemoglobin 13.5 g/dL (12.0-16.0)
[2021-09-10 12:07] LABS: GTT (PREG) 1 Hour PP 50gm Dose 117 mg/dL (76-139)
== END ==
PROVIDERS: Referring Provider Obstetrics & Gynecology; Visit Provider Obstetrics & Gynecology
DX: Z34.82 Encounter for supervision of other normal pregnancy, second trimester (principal); Z3A.26 26 weeks gestation of pregnancy
CPT/HCPCS: 36415; 82950; 85014; 85018

== ENCOUNTER 2021-10-06 17:20 | Observation (INO) | payer OTHER, SELFPAY ==
--- NOTE | 2021-10-06 17:53 | DI.US.S_ITS ---
PROCEDURE: US OB LIMITED INDICATIONS: contractions, evaluate cervical length, hr, GLORIA OUTSIDE/PRIOR DATING DATA: Last menstrual period (LMP): Not known LMP-based estimated date of delivery (NOE): Not applicable First dating scan (date and location): May 20, 2021 Estimated date of delivery (NOE) from first dating scan: December 25, 2021 The calculations are made using the ultrasound NOE of December 25, 2021 TECHNIQUE: Real-time scanning was performed of the fetus, with image documentation. Endovaginal scanning: Performed COMPARISON: [facility], US, US OB >= 14 WEEKS FETUS, 08/12/2021, 14:10. [facility], US, US OB >= 14 WEEKS FETUS, 08/05/2021, 14:56. [facility], US, US OB <= 14 WEEKS FETUS, 06/17/2021, 8:56. [facility], US, US OB <= 14 WEEKS FETUS, 05/20/2021, 8:25. FINDINGS: A single living intrauterine gestation is present. Presentation: Transverse, head right. Placenta: Placental position is anterior without previa. Amniotic fluid index: 17.2 cm, normal range is 5-24 cm. Single deepest vertical pocket is 5.3 cm. heart rate: 150 beats per minute. Maternal cervical canal: Closed and 4.0 cm long. Normal lower limit is 2.5 cm. Estimated gestational age from initial scan: 29 weeks 0 days IMPRESSION: Single living intrauterine . Normal amniotic fluid index measuring 17.2 centimeters. Cervix closed and 4.0 centimeters in length. Dictated by: My To MD, PhD on 10/06/2021 at 18:32 Approved by: My To MD, PhD on 10/06/2021 at 18:36
[2021-10-06 18:17] LABS: Appearance Urine UA CLEAR; Bilirubin Urine UA NEGATIVE (NEGATIVE); Glucose Urine UA NEGATIVE (Negative); Ketones Urine UA NEGATIVE (NEGATIVE); Leukocyte Esterase Urine UA NEGATIVE (NEGATIVE); Nitrite Urine UA NEGATIVE (Negative); Occult Blood Urine UA NEGATIVE (Negative); Protein Urine UA NEGATIVE (Negative); Specific Gravity Urine UA <=1.005 (1.000-1.035); Urobilinogen Urine UA 0.2 E.U./dL (0.2)
[2021-10-06 18:27] LABS: Color Urine UA STRAW
[2021-10-06 18:28] LABS: Bacteria Urine Occasional (0-1); Culture Indicated Urine Cult Not Indicated; RBC Urine None Seen (0-5/HPF); Squamous Epithelial Cell Urine 0-1 /HPF (0-5/HPF); WBC Urine None Seen (0-5/HPF)
[2021-10-06 18:53] LABS: Fetal Fibronectin Negative
--- NOTE | 2021-10-07 08:35 | P.TNLD_ITS ---
Visit Information Visit Information Date of evaluation: 10/06/21 Primary OB Provider: Enedina Gray On-call OB Provider: Corazon Knowles Reason for Evaluation: Yes non-stress test Comments/Additional reasons for admission: This patiet is a 31yo P1 with a history of at term after a complicated by uterine irritability, presenting with cramping every 1-2 minutes for several hours. GOod movement, no LOF or VB, no UTI symptoms, has hydrated and rested at home with no improvement. Otherwise uncomplicated . Vital Signs Vital Signs: 124/68, HR 103 PFSH Medical History (Updated 05/20/21 @ 08:30 by Enedina Gray MD) Chicken pox (~1995) Family history of colon cancer in mother Finger fracture Fracture of multiple toes Fractures Infertility (10/2018) Migraines (~2005) Surgical History (Updated 10/24/19 @ 14:33 by Merissa Hughes RN) Anesthesia H/O wisdom tooth extraction (~2005) History of tonsillectomy Torn medial meniscus (~03/2011) Family History (Updated 10/24/19 @ 14:28 by Merissa Hughes, PATRICIA) Father Diverticulitis Asthma Mother Colon cancer PCOS (polycystic ovarian syndrome) Grandfather Cancer Diabetes mellitus History of heart disease Hypertension Grandmother Diabetes mellitus Hypertension Grandfather Hepatic necrosis Alcoholic Grandmother Hypertension Family estrangement Altered cardiac tissue perfusion Brother No known health problems Family/Other Diabetes mellitus Social History marital status: number of children: 1 household members: spouse and children lives independently: Yes housing: house pets and animals: Yes (X 1 Cat) education level: master's degree occupational status: employed current occupational exposures/hazards: No Previous occupational history: [employer] special etta needs: No seatbelt use: always water heater temp set < 120 deg: Yes working smoke detector in home: Yes fire extinguisher in home: Yes carbon monox detector in home: Yes firearms in home: No do you feel safe at home: Yes Smoking Status: Never smoker second hand exposure: No alcohol intake: former substance use type: does not use during the past year weight has: remained stable well-balanced diet: daily or most days daily servings fruits/ve-4 caffeine: Yes (200mg) Type(s) of exercise: walking and bicycling Objective Labs Labs: Laboratory Results - last 24 hr 10/06/21 10/06/21 18:00 18:00 Urine Color Straw Urine Appearance Clear Urine pH 7.0 Ur Specific [place] <=1.005 Urine Protein Negative Urine Glucose (UA) Negative Urine Ketones Negative Urine Occult Blood Negative Urine Nitrate Negative Urine Bilirubin Negative Urine Urobilinogen 0.2 Ur Leukocyte Esterase Negative Urine RBC None seen Urine WBC None seen Ur Squamous Epith Cells 0-1 /hpf D Urine Bacteria Occasional (0-1) D Ur Culture Indicated? Cult not indicated Fibronectin Negative Evaluation Evaluation Baseline heart rate: 135 Variability: Moderate (11-25) monitor accelerations: Present Monitor Decelerations: Absent Category of Tracing: Reactive Status: Category l Cervical dilation (cm): 0 Cervical effacement (%): 0 Comments: negative FFN, cervix 4.0cm, UA wnl Diagnosis, Plan/Disposition Plan/Disposition Plan: Few contractions, no signs of labor, no signs of infection, abruption, UTI. Home with scheduled follow up and labor precautions. OB Disposition: home
== END 2021-10-06 19:05 | disposition home or self-care (01) ==
LOC: LABOR 17:22
PROVIDERS: Obstetrics & Gynecology; Admitting Provider Obstetrics & Gynecology; Referring Provider Obstetrics & Gynecology; Visit Provider Obstetrics & Gynecology
DX: O47.03 False labor before 37 completed weeks of gestation, third trimester (principal); Z3A.29 29 weeks gestation of pregnancy
CPT/HCPCS: 59025; 59050; 76815; 76817; 81001; 82731; G0378; G0379

== ENCOUNTER 2021-11-25 06:36 | Outpatient (CLI) | payer OTHER, SELFPAY ==
--- NOTE | 2021-11-25 07:58 | PM.OBTRLD ---
Visit Information Visit Information Date of evaluation: 11/25/21 Primary OB Provider: Enedina Gray Reason for Evaluation: Yes non-stress test and Yes other Comments/Additional reasons for admission: External Cephalic Version [facility] Medical History (Updated 11/18/21 @ 15:24 by Enedina Gray MD) Chicken pox (~1995) Family history of colon cancer in mother Finger fracture Fracture of multiple toes Fractures Infertility (10/2018) Migraines (~2005) Surgical History (Updated 10/24/19 @ 14:33 by Merissa Hughes RN) Anesthesia H/O wisdom tooth extraction (~2005) History of tonsillectomy Torn medial meniscus (~03/2011) Family History (Updated 10/24/19 @ 14:28 by Merissa Hughes, PATRICIA) Father Diverticulitis Asthma Mother Colon cancer PCOS (polycystic ovarian syndrome) Grandfather Cancer Diabetes mellitus History of heart disease Hypertension Grandmother Diabetes mellitus Hypertension Grandfather Hepatic necrosis Alcoholic Grandmother Hypertension Family estrangement Altered cardiac tissue perfusion Brother No known health problems Family/Other Diabetes mellitus Social History marital status: number of children: 1 household members: spouse and children lives independently: Yes housing: house pets and animals: Yes (X 1 Cat) education level: master's degree occupational status: employed current occupational exposures/hazards: No Previous occupational history: [employer] special etta needs: No seatbelt use: always water heater temp set < 120 deg: Yes working smoke detector in home: Yes fire extinguisher in home: Yes carbon monox detector in home: Yes firearms in home: No do you feel safe at home: Yes Smoking Status: Never smoker second hand exposure: No alcohol intake: former substance use type: does not use during the past year weight has: remained stable well-balanced diet: daily or most days daily servings fruits/ve-4 caffeine: Yes (200mg) Type(s) of exercise: walking and bicycling Exam Narrative Exam Narrative: Generally: A well-developed, well-nourished female, no acute distress Ultrasound: A bedside ultrasound was performed and the baby was in the vertex presentation with spine to the patient's left and face down. Evaluation Evaluation Baseline heart rate: 145 Variability: Moderate (11-25) monitor accelerations: Present Monitor Decelerations: Absent Diagnosis, Plan/Disposition Plan/Disposition Plan: Assessment: 31 year old at 36 weeks with breech presentation in the office Vertex on ultrasound this morning Plan: Abdominal binder F/U as scheduled next OB Disposition: home
[2021-11-25 08:24] LABS: Add Manual Diff / Slide Review NO; Basophils Absolute Auto 100 /uL (0-100); Basophils Percent Auto 0.6 % (0-2); Eosinophils Absolute Auto 100 /uL (0-450); Eosinophils Percent Auto 0.7 % (2-4); Hematocrit 38.7 % (36-46); Hemoglobin 13.9 g/dL (12.0-16.0); Lymphocytes Absolute Auto 2000 /uL (1100-4500); Lymphocytes Percent Auto 22.7 % (25-40); Mean Corpuscular HGB Conc 35.9 % (30-36); Mean Corpuscular Hemoglobin 33.1 PG (26-34); Mean Corpuscular Volume 92.2 fL (80-100); Monocytes Absolute Auto 600 /uL (0-900); Monocytes Percent Auto 6.4 % (3-14); Neutrophils Absolute Auto 6000 /uL (1500-7000); Neutrophils Percent Auto 69.6 % (50-75); Platelet Count 244 X10^3/uL (150-400); White Blood Cell Count 8.6 X10^3/uL (4.5-11.0)
[2021-11-25 08:41] LABS: COVID19 -Nasal RAPID Negative (Negative)
== END 2021-11-25 08:37 | disposition home or self-care (01) ==
LOC: OB 12:20
PROVIDERS: Referring Provider Obstetrics & Gynecology; Visit Provider Obstetrics & Gynecology
DX: O32.1XX0 Maternal care for breech presentation, not applicable or unspecified (principal); Z3A.36 36 weeks gestation of pregnancy; Z20.822 Contact with and (suspected) exposure to COVID-19
CPT/HCPCS: 59025; 76815; 85025; 86850; 86900; 86901; 87635; C9803; G0378; G0379

== ENCOUNTER → 2021-12-05 16:20 | Outpatient (CLI) | payer OTHER, SELFPAY ==
[2021-12-06 13:35] LABS: Strep Grp B PCR NEG for Grp B Strep
== END ==
PROVIDERS: Visit Provider Obstetrics & Gynecology
DX: Z34.83 Encounter for supervision of other normal pregnancy, third trimester (principal); Z3A.37 37 weeks gestation of pregnancy
CPT/HCPCS: 87653

== ENCOUNTER 2021-12-17 07:11 | Inpatient (IN) | payer OTHER, SELFPAY ==
[2021-12-17 08:14] LABS: COVID19 -Nasal RAPID Negative (Negative)
[2021-12-17] MEDS: LACTATED RINGERS 1,000 ML 100 ML IV ×3 (08:37→20:40)
[2021-12-17] MEDS: OXYTOCIN PREMIX 30 UNIT/500 ML PLAST..BAG IV (08:48)
[2021-12-17 08:50] LABS: Add Manual Diff / Slide Review NO; Basophils Absolute Auto 100 /uL (0-100); Basophils Percent Auto 1.1 % (0-2); Eosinophils Absolute Auto 100 /uL (0-450); Eosinophils Percent Auto 0.6 % (2-4); Hematocrit 41.3 % (36-46); Hemoglobin 14.7 g/dL (12.0-16.0); Lymphocytes Absolute Auto 2000 /uL (1100-4500); Lymphocytes Percent Auto 18.2 % (25-40); Mean Corpuscular HGB Conc 35.7 % (30-36); Mean Corpuscular Hemoglobin 32.9 PG (26-34); Mean Corpuscular Volume 92.3 fL (80-100); Monocytes Absolute Auto 700 /uL (0-900); Monocytes Percent Auto 6.6 % (3-14); Neutrophils Absolute Auto 8000 /uL (1500-7000); Neutrophils Percent Auto 73.5 % (50-75); Platelet Count 240 X10^3/uL (150-400); Red Blood Cell Count 4.47 X10^6/uL (4.0-5.2); White Blood Cell Count 10.9 X10^3/uL (4.5-11.0)
--- NOTE | 2021-12-17 09:18 | PM.OBHP.IH.1 ---
OB HPI Date/Time Date of admission: 12/17/21 Date Patient Seen: 12/17/21 Time Patient Seen: 08:05 History of Present Condition Chief complaint: OBSERVATION OF LABOR NOE Calculator Estimated Delivery Date Method Current WG Current Estimate 12/22/21 Ultrasound #1 39w 2d Other Estimates 12/09/21 LMP (Certain) 41w 1d 12/22/21 Ultrasound #2 39w 2d : 2 Para: 1 care: good care, initiated at week # (9), number of visits (10) and pounds weight gain (24) Dating criteria OB: LMP confirmed by 1st trimester US Ultrasounds: normal 1st trimester US and normal mid trimester US Obstetrical complications: none Medical complications OB: none Indications Indication for induction OB: other (Elective) Preadmission Labs Last OB Lab Results: Blood Type O Positive 12/17/21 08:35 Antibody Screen Negative 12/17/21 08:35 Hematocrit 41.3 % (36-46) 12/17/21 08:35 Hemoglobin 14.7 g/dL (12.0-16.0) 12/17/21 08:35 Hepatitis B Surface Antigen Negative s/c (NEGATIVE) 05/29/21 10:06 Hepatitis C Antibody Negative s/c (NEGATIVE) 05/29/21 10:06 Rubella Antibody 43.6 IU/mL (>15) 05/29/21 10:06 Varicella-Zoster IgG Antibody 714 index (Immune >165) 05/29/21 10:06 Glucose 1 Hour 117 mg/dL (76-139) 09/10/21 09:40 Group B Streptococcus (PCR) Neg for grp b strep 12/05/21 16:20 -: Chlamydia screen: negative, Gonorrhea screen: negative and Urine: negative -: PAP smear: Normal Genetic Screens: Cell-free DNA: Normal and Alpha-fetoprotein: Normal External Labs -: Urine: negative Prior (ies) Past Pregnancies Del. Date GA/Weeks Labor Lgth Wt Sex Route Outcome Anesthesia Place Delv Breastfeed Preg Comp Name 06/08/20 40+2 40 8 lb 12 oz Female vaginal live - full term [facility] still breast feeding none Lisette Delivery Date: 06/08/20 Last Updated by: Lili Cage R.N. [facility] - dx Laryngomalacia, contractions, Induced Evaluation Evaluation Baseline heart rate: 130 Variability: Moderate (11-25) monitor accelerations: Present Monitor Decelerations: Absent Contraction Frequency (minutes): 6 Uterine Contraction Intensity: Mild Status: Category l Dilation (cm): 3 Effacement (%): 80 station: -1 Position of cervix: mid [facility] Medical History (Updated 12/05/21 @ 16:07 by Enedina Gray MD) Chicken pox (~1995) Family history of colon cancer in mother Finger fracture Fracture of multiple toes Fractures Infertility (10/2018) Migraines (~2005) Surgical History (Updated 10/24/19 @ 14:33 by Merissa Hughes RN) Anesthesia H/O wisdom tooth extraction (~2005) History of tonsillectomy Torn medial meniscus (~03/2011) Family History (Updated 10/24/19 @ 14:28 by Merissa Hughes RN) Father Diverticulitis Asthma Mother Colon cancer PCOS (polycystic ovarian syndrome) Grandfather Cancer Diabetes mellitus History of heart disease Hypertension Grandmother Diabetes mellitus Hypertension Grandfather Hepatic necrosis Alcoholic Grandmother Hypertension Family estrangement Altered cardiac tissue perfusion Brother No known health problems Family/Other Diabetes mellitus Social History marital status: number of children: 1 household members: spouse and children lives independently: Yes housing: house pets and animals: Yes (X 1 Cat) education level: master's degree occupational status: employed current occupational exposures/hazards: No Previous occupational history: [employer] special etta needs: No seatbelt use: always water heater temp set < 120 deg: Yes working smoke detector in home: Yes fire extinguisher in home: Yes carbon monox detector in home: Yes firearms in home: No do you feel safe at home: Yes Smoking Status: Never smoker second hand exposure: No alcohol intake: former substance use type: does not use during the past year weight has: remained stable well-balanced diet: daily or most days daily servings fruits/ve-4 caffeine: Yes (200mg) Type(s) of exercise: walking and bicycling Meds Home Medications and Allergies Home Medications Medication Instructions Recorded Confirmed Type prenat.vits,kristian,pqw-jpkp-hqsac 1 tab PO DAILY 10/03/19 12/12/21 History progesterone micronized 100 mg 100 mg PO BID #180 caps 04/11/21 12/12/21 Rx capsule nifedipine 10 mg capsule See Rx Instructions .Route 11/14/21 12/12/21 Rx .COMPLEX #30 caps Allergies Allergy/AdvReac Type Severity Reaction Status Date / Time Sulfa (Sulfonamide Allergy Intermediate hives Verified 12/12/21 09:42 Antibiotics) OB Exam Narrative Exam Narrative: Generally: Patient walking around in room, no acute distress Lungs: Clear to auscultation bilaterally Cardiovascular: Regular rate and rhythm Fundal height: 39 cm Estimated weight: 7-1/2 lb Extremities: Trace edema it, 1+ DTRs Objective Labs Result Diagrams: 12/17/21 08:35 Labs: Laboratory Results - last 24 hr 12/17/21 12/17/21 07:39 08:35 WBC 10.9 RBC 4.47 Hgb 14.7 Hct 41.3 MCV 92.3 MCH 32.9 MCHC 35.7 RDW 13.0 Plt Count 240 Neut % (Auto) 73.5 Lymph % (Auto) 18.2 L [place] % (Auto) 6.6 Eos % (Auto) 0.6 L Baso % (Auto) 1.1 Neut # (Auto) 8000 H Lymph # (Auto) 2000 [place] # (Auto) 700 Eos # (Auto) 100 Baso # (Auto) 100 SARS-CoV-2 (PCR) Negative Assessment and Plan Assessment and Plan Assessment and Plan narrative: Assessment: 31-year-old 2 para 1 for elective induction of labor GBS negative Plan: Begin Pitocin per protocol 2 Epidural as necessary Artificial rupture of membranes when able Expected management to spontaneous vaginal delivery Time Spent with Patient Total time spent with greater than 50% in coordination of care (as documented) at patient's floor/unit and/or counseling patient:: 15-24 minutes
[2021-12-17 09:27] VITALS: BP 128/69
[2021-12-17] MEDS: FENT 2MCG/ML BUPIV 0.125% EPI 200 MCG/100 ML PLAST..BAG 8 MCG EPIDURAL (15:19)
--- NOTE | 2021-12-17 17:22 | PM.OBPNLAB ---
Date/Time Date Patient Seen: 12/17/21 Time Patient Seen: 12:50 Pain Control Pain control: tolerating well Pelvic Exam Dilation (cm): 4 Effacement (%): 80 station: -1 Amniotic membrane status: Intact Contractions Contractions on admission: none Monitor mode: External Pitocin rate (mU/min): 11 Contraction frequency (min): 3 Contraction duration (min): 1 Contraction pattern: Regular Contraction intensity: Moderate Status status: Category l Heart Rate Baseline: 130 Monitor Accelerations: Present Monitor Decelerations: Absent Monitor Variability: Moderate Assessment and Plan Assessment: induction ongoing Comments: Artificial rupture of membranes with copious clear amniotic fluid Epidural as necessary
--- NOTE | 2021-12-17 17:23 | PM.OBPNLAB ---
Date/Time Date Patient Seen: 12/17/21 Time Patient Seen: 17:23 Pain Control Pain control: epidural Pelvic Exam Dilation (cm): 5 Effacement (%): 85 station: -1 Amniotic membrane status: Ruptured Contractions Contractions on admission: irregular Monitor mode: External Pitocin rate (mU/min): 9 Contraction frequency (min): 5 Contraction duration (min): 1 Contraction pattern: Regular Contraction intensity: Moderate Status status: Category l Heart Rate Baseline: 135 Monitor Accelerations: Present Monitor Decelerations: Absent Monitor Variability: Moderate Assessment and Plan Assessment: active labor Plan: continuous present management
[2021-12-17 18:17] VITALS: TEMP 36.7
[2021-12-17] MEDS: ACETAMINOPHEN 325 MG TABLET 650 MG PO (18:17)
--- NOTE | 2021-12-17 20:36 | PM.OBPRVD ---
Events: Labor Induction Labor & Delivery Delivery date: 12/17/21 Intrapartal Events: None Cervical ripening method: none Induction method: per pitocin protocol Delivery augmentation: rupture of membranes Delivery monitor: external FHT and external uterine Route of delivery: Episiotomy description: None L&D Laceration Description: Superficial (Bilateral periurethral) Delivery repair: chromic Estimated blood loss (mL): 200 Anesthesia Type: Epidural Complications: None Narrative: Patient complete and pushed with 3 contractions. At 8:15 p.m., a live male infant delivered spontaneously in the EMILIANO presentation over an intact perineum. No nuchal cord. The remainder of the body delivered without difficulty and was placed on mom's abdomen. After the cord stopped pulsing, the cord was double clamped and cut. Cord bloods were obtained. The placenta delivered intact with a three-vessel cord at 8:23 p.m. Pitocin was given in the IV fluids. The fundus was massaged to firm. The perineum was inspected and there were bilateral superficial periurethral lacerations which were repaired with 3-0 chromic. Hemostasis was achieved. Estimated blood loss 200 cc. Apgars 8 at 1 minute and 9 at 5 minutes. . Epidural analgesia. Mom and infant stable to recovery. Baby 1: gender: Male Presentation: vertex Position: Left Occiput Anterior Placenta delivery description: Spontaneous Cord Vessel Description: 3 Vessels and Clamped/Cut (After the cord stopped pulsing) score (1 min): 8 score (5 min): 9 weight: 7 lb 14 oz Plan for aftercare: Routine care
[2021-12-18] MEDS: ACETAMINOPHEN 325 MG TABLET 650 MG PO ×3 (00:17→12:32)
[2021-12-18] MEDS: DERMOPLAST SPRAY 20% 60 ML 1 SPRAY TOP (00:17)
[2021-12-18] MEDS: IBUPROFEN 600 MG TABLET PO ×3 (00:17→12:33)
[2021-12-18 07:02] LABS: Hematocrit 36.1 % (36-46); Hemoglobin 12.8 g/dL (12.0-16.0)
[2021-12-18] MEDS: DOCUSATE 100 MG CAPSULE PO (09:01)
[2021-12-18] MEDS: PRENATAL VIT,CALC/IRON/FOLIC 1 TABLET 1 TAB PO (09:01)
--- NOTE | 2021-12-18 11:33 | PM.OBDS.1 ---
Discharge Providers Provider Date of admission: 12/17/21 07:11 Discharge Date: 12/18/21 Primary care physician: Doctor Ken MD Consults: 12/18/21 20:34 Consult to Taxation Accountant Routine Comment: Discharge provider: Enedina Gray MD Summary Hospital Course Date Patient Seen: 12/18/21 Time Patient Seen: 09:20 Diagnoses: Thirty-nine weeks gestation Induction of labor with Pitocin Spontaneous vaginal delivery Artificial rupture of membranes Epidural analgesia Hospital Course: Patient is a 31 year old 2 para 2 day # 1 status post spontaneous vaginal delivery after induction of labor. She presented on December 17, 2021 for scheduled induction of labor with Pitocin. She received Pitocin. Artificial rupture of membranes was performed. She received an epidural for pain management. She had a spontaneous vaginal delivery without complication. Peripartum Data Infant Delivery Method: Natural Vaginal Laceration Description: Superficial (Bilateral periurethral) Episiotomy description: None Procedures: Pitocin induction of labor Artificial rupture of membranes Epidural analgesia Spontaneous vaginal delivery Repair of bilateral superficial periurethral lacerations complications: none [place] 1: Gender: Male Status at Discharge Cognitive/behavioral status at discharge: oriented Functional status at discharge: independent ambulation Overall status at discharge: patient is progressing back to baseline Time Spent with Patient Time attestation: Total time spent providing and/or coordinating discharge services: Time spent: Less than 30 minutes Objective Labs Result Diagrams: 12/18/21 06:41 Labs: Laboratory Results - last 24 hr 12/18/21 06:41 Hgb 12.8 Hct 36.1 Exam Narrative Exam Narrative: Generally: Patient sitting up in bed, no acute distress Fundus: Firm at U -1 Extremities: Negative Homans, no edema Discharge Plan Discharge Plan Patient Disposition: Home Provider Discharge Comment: Call with fever, chills, or bleeding vaginally more than a pad in an hour Ibuprofen 600 mg every 6 hours as needed for cramping or back pain (NEXT DOSE DUE AT 6:30 PM NEEDED) Tylenol 650 mg every 6 hours as needed (NEXT DOSE DUE AT 6:30 PM NEEDED) Discharge orders & Medications Prescriptions: Continued prenat.vits,kristian,mbl-dfbh-vipac Tablet 1 tab PO DAILY Discontinued progesterone micronized 100 mg capsule 100 mg PO BID Qty: 180 0RF Follow up/Referrals: Enedina Gray MD [Physician] - 01/28/22 9:00 am Diet/Activity/Treatments Diet: Regular Activity: Nothing in the vagina for 6 weeks Skin/Wound/Dressing Care Report to your healthcare provider any signs of infection, such as:: chills, fever, increased pain, unusual drainage and unusual redness Visit Report/Discharge Packet Instructions: DI for Labor and Delivery, Vaginal , Bartholin Gland Cyst Stand Alone Forms: Discharge: Care Discharge Data Primary Care Provider: Miscellaneous,Doctor
== END 2021-12-18 15:45 | disposition home or self-care (01) | DRG 807 ==
PROVIDERS: Admitting Provider Obstetrics & Gynecology; Referring Provider Obstetrics & Gynecology; Visit Provider Obstetrics & Gynecology
DX: O70.0 First degree perineal laceration during delivery (principal); Z37.0 Single live birth; Z3A.39 39 weeks gestation of pregnancy; Z20.822 Contact with and (suspected) exposure to COVID-19
CPT/HCPCS: 01967; 36415; 59050; 59400; 85014; 85018; 85025; 86850; 86900; 86901; 87635; C9803; G0379; J2590

== ENCOUNTER → 2022-01-21 13:21 | Outpatient (CLI) | payer OTHER, SELFPAY | PROVIDERS: Family Provider Family Medicine; PCP Family Medicine; Referring Provider Family Medicine; Visit Provider Family Medicine ==

== ENCOUNTER → 2023-06-10 10:54 | Outpatient (CLI) | payer OTHER, SELFPAY ==
[2023-06-10 11:48] LABS: Add Manual Diff / Slide Review NO; Basophils Absolute Auto 0 /uL (0-100); Basophils Percent Auto 0.4 % (0-2); Eosinophils Absolute Auto 100 /uL (0-450); Eosinophils Percent Auto 0.6 % (2-4); Hematocrit 40.7 % (36-46); Lymphocytes Absolute Auto 2000 /uL (1100-4500); Lymphocytes Percent Auto 23.6 % (25-40); Mean Corpuscular HGB Conc 34.5 % (30-36); Mean Corpuscular Hemoglobin 31.5 PG (26-34); Mean Corpuscular Volume 91.2 fL (80-100); Monocytes Absolute Auto 500 /uL (0-900); Neutrophils Absolute Auto 5900 /uL (1500-7000); Neutrophils Percent Auto 69.4 % (50-75); Platelet Count 275 X10^3/uL (150-400); Red Blood Cell Count 4.46 X10^6/uL (4.0-5.2); Red Cell Distribution Width 12.6 % (11.6-14.8); White Blood Cell Count 8.4 X10^3/uL (4.5-11.0)
[2023-06-11 19:59] LABS: HIV 1 & 2 Ab/Ag 4th Gen Combo NEGATIVE (NEGATIVE); Hep C Virus Ab w/Reflex Quant NEGATIVE s/c (NEGATIVE); Hepatitis B Surface Antigen NEGATIVE s/c (NEGATIVE)
[2023-06-12 03:36] LABS: RPR Screen Non Reactive (Non Reactive)
[2023-06-12 09:47] LABS: Varicella IgG Antibody 846 index (Immune >165)
== END ==
LOC: LAB 10:55
PROVIDERS: Family Provider Family Medicine; PCP Family Medicine; Referring Provider Obstetrics & Gynecology; Visit Provider Obstetrics & Gynecology
DX: Z34.80 Encounter for supervision of other normal pregnancy, unspecified trimester (principal)
CPT/HCPCS: 36415; 80055; 86787; 86803; 86850; 86900; 86901; 87086; 87389

== ENCOUNTER → 2023-07-29 10:36 | Outpatient (CLI) | payer OTHER, SELFPAY ==
[2023-08-01 20:16] LABS: AFP Value 24.7 ng/mL (.); Insulin Dep Diabetes No (.); OSBR Risk 1IN 10000 (.); Results Report (.); Test Results *Screen Negative* (.)
== END ==
PROVIDERS: Family Provider Family Medicine; PCP Family Medicine; Referring Provider Obstetrics & Gynecology; Visit Provider Obstetrics & Gynecology
DX: Z34.82 Encounter for supervision of other normal pregnancy, second trimester (principal); Z3A.17 17 weeks gestation of pregnancy
CPT/HCPCS: 36415; 82105

== ENCOUNTER → 2023-08-21 10:17 | Outpatient (CLI) | payer OTHER, SELFPAY ==
--- NOTE | 2023-08-21 10:18 | DI.US.S_ITS ---
PROCEDURE: US OB >= 14 WEEKS FETUS INDICATIONS: 20 week anatomy scan OUTSIDE/PRIOR DATING DATA: Last menstrual period (LMP): 04/01/2023. LMP-based estimated date of delivery (NOE): 01/06/2024. First dating scan (date and location): Not applicable. Estimated date of delivery (NOE) from first dating scan: Not applicable. The calculations are made using the clinical NOE of 01/06/2024. TECHNIQUE: Real-time scanning was performed of the fetus, with image documentation and biometric measurements. Endovaginal scanning: No COMPARISON: [facility], , OB >= 14 WEEKS FETUS, 11/18/2021, 14:34. FINDINGS: General: A single living intrauterine gestation is present. Presentation: Maternal right transverse. Placenta: Placental position is posterior , without previa. Amniotic fluid index: 9.6 cm, normal range is 5-24 cm. Single deepest vertical pocket is 2.7 cm. heart rate: 171 beats per minute. Maternal cervical canal: 3.6 cm long. Normal lower limit is 2.5 cm. biometrics: Biparietal diameter: 4.6 cm, 19 week 6 day Head circumference: 17.4 cm, 20 week 0 day Abdominal circumference: 15.8 cm, 20 week 6 day Femur length: 3.4 cm, 20 week 4 day Clinically estimated gestational age: 20 week 2 day Composite gestational age from present scan: 20 week 2 day Estimated weight and percentile: 360 g, 66 percentile Anatomic survey: Neuro: Ventricles are non-dilated at less than 10 mm. Cisterna magna is normal at 3-11 mm. Cerebellum is normal in size and morphology. Nuchal skin fold: Not well seen Face: Nose and lips, facial profile are normal. Spine: No evidence for spina bifida. Heart: Not well seen Diaphragm: Diaphragm is intact. Stomach: Left-sided stomach is present. Kidneys: Not well seen Cord: 3-vessel cord has orthotopic insertion. Bladder: Normal in size. Extremities: All 4 extremities identified. IMPRESSION: Single live intrauterine consistent with 20 week 2 day gestation Heart and kidneys not well observed currently. Attention on follow-up. Approved by: Feng Lee M.D. on 08/21/2023 at 17:40
== END ==
PROVIDERS: Family Provider Family Medicine; PCP Family Medicine; Referring Provider Specialist; Visit Provider Specialist
DX: Z34.82 Encounter for supervision of other normal pregnancy, second trimester (principal); Z3A.20 20 weeks gestation of pregnancy
CPT/HCPCS: 76811

== ENCOUNTER → 2023-09-18 07:16 | Outpatient (CLI) | payer OTHER, SELFPAY ==
--- NOTE | 2023-09-18 07:17 | DI.US.S_ITS ---
PROCEDURE: US OB FOLLOW UP INDICATIONS: Follow up anatomy scan heart/kidneys OUTSIDE/PRIOR DATING DATA: Last menstrual period (LMP): 04/01/2023. LMP-based estimated date of delivery (NOE): 01/06/2024. TECHNIQUE: Real-time scanning was performed of the fetus, with image documentation. Endovaginal scanning: Not performed COMPARISON: [facility], , OB >= 14 WEEKS FETUS, 08/21/2023, 10:45. FINDINGS: A single living intrauterine gestation is present. Presentation: Transverse. Placenta: Placental position is posterior, without previa. Amniotic fluid index: 9.6 cm, normal range is 5-24 cm. Single deepest vertical pocket is 3.8 cm. heart rate: 133 beats per minute. Maternal cervical canal: Not evaluated . Clinically estimated gestational age: 24 weeks 2 days Four-chamber view and the outflow tracts appear within normal limits. IMPRESSION: Single living intrauterine at 24 weeks 2 days, NOE of 01/06/2024. Normal cardiac views on today's examination. Dictated by: Clarence Daly M.D. on 09/22/2023 at 12:13 Approved by: Clarence Daly M.D. on 09/22/2023 at 12:16
[2023-09-18 09:54] LABS: Hematocrit 38.6 % (36-46); Hemoglobin 13.4 g/dL (12.0-16.0)
[2023-09-18 10:11] LABS: GTT (PREG) 1 Hour PP 50gm Dose 108 mg/dL (76-139)
== END ==
PROVIDERS: Family Provider Family Medicine; PCP Family Medicine; Referring Provider Obstetrics & Gynecology; Visit Provider Obstetrics & Gynecology
DX: Z34.82 Encounter for supervision of other normal pregnancy, second trimester (principal); Z3A.24 24 weeks gestation of pregnancy
CPT/HCPCS: 36415; 76816; 82950; 85014; 85018

== ENCOUNTER → 2023-10-21 10:36 | Outpatient (CLI) | payer OTHER, SELFPAY | PROVIDERS: Family Provider Family Medicine; PCP Family Medicine; Referring Provider Specialist; Visit Provider Specialist | DX: R82.998 Other abnormal findings in urine (principal); R82.4 Acetonuria; R80.9 Proteinuria, unspecified; R82.2 Biliuria | CPT/HCPCS: 87086 ==

== ENCOUNTER → 2023-12-09 09:20 | Outpatient (CLI) | payer OTHER, SELFPAY ==
[2023-12-10 07:32] LABS: Strep Grp B PCR NEG for Grp B Strep
== END ==
PROVIDERS: Family Provider Family Medicine; PCP Family Medicine; Visit Provider Obstetrics & Gynecology
DX: Z34.83 Encounter for supervision of other normal pregnancy, third trimester (principal); Z3A.36 36 weeks gestation of pregnancy
CPT/HCPCS: 87653

== ENCOUNTER 2023-12-30 14:02 | Inpatient (IN) | payer OTHER, SELFPAY ==
[2023-12-30] MEDS: LACTATED RINGERS 1,000 ML 100 ML IV (16:09)
[2023-12-30] MEDS: OXYTOCIN PREMIX 30 UNIT/500 ML PLAST..BAG IV (16:13)
[2023-12-30 16:44] LABS: Add Manual Diff / Slide Review NO; Basophils Absolute Auto 0 /uL (0-100); Basophils Percent Auto 0.5 % (0-2); Eosinophils Absolute Auto 0 /uL (0-450); Eosinophils Percent Auto 0.3 % (2-4); Hematocrit 40.2 % (36-46); Hemoglobin 14.1 g/dL (12.0-16.0); Lymphocytes Absolute Auto 1800 /uL (1100-4500); Lymphocytes Percent Auto 19.3 % (25-40); Mean Corpuscular HGB Conc 35.2 % (30-36); Mean Corpuscular Hemoglobin 32.6 PG (26-34); Mean Corpuscular Volume 92.8 fL (80-100); Monocytes Absolute Auto 400 /uL (0-900); Monocytes Percent Auto 4.5 % (3-14); Neutrophils Absolute Auto 6900 /uL (1500-7000); Neutrophils Percent Auto 75.4 % (50-75); Platelet Count 273 X10^3/uL (150-400); Red Blood Cell Count 4.33 X10^6/uL (4.0-5.2); Red Cell Distribution Width 13.1 % (11.6-14.8); White Blood Cell Count 9.2 X10^3/uL (4.5-11.0)
[2023-12-30 16:56] VITALS: BP 129/66
--- NOTE | 2023-12-30 18:09 | P.HPOB_ITS ---
OB HPI Date/Time Date of admission: 12/30/23 Date Patient Seen: 12/30/23 Time Patient Seen: 18:10 History of Present Condition Chief complaint: induction NOE Calculator 2 Estimated Delivery Date Method Current WG Current Estimate 01/06/24 LMP (Certain) 39w 0d Other Estimates 01/05/24 Ultrasound #1 39w 1d Estimated Gestational Age (weeks): 39 : 4 Para: 2 care: good care, initiated at week # (9), number of visits (11) and pounds weight gain (25) Dating criteria OB: LMP confirmed by 1st trimester US Ultrasounds: normal 1st trimester US and normal mid trimester US Obstetrical complications: none Medical complications OB: none Indications Indication for induction OB: other (AMA) Preadmission Labs Last OB Lab Results: 2 Blood Type O Positive 12/30/23 15:00 Antibody Screen Negative 12/30/23 15:00 Hct 40.2 % (36-46) 12/30/23 15:00 Hgb 14.1 g/dL (12.0-16.0) 12/30/23 15:00 Hep Bs Antigen Negative s/c (NEGATIVE) 06/10/23 10:59 Hepatitis C Antibody Negative s/c (NEGATIVE) 06/10/23 10:59 Rubella Antibody 40.0 IU/mL (>15) 06/10/23 10:59 VZV IgG Antibody 846 index (Immune >165) 06/10/23 10:59 Glucose 1 Hr 50 gm 108 mg/dL (76-139) 09/18/23 09:11 Group B Strep (PCR) Neg for grp b strep 12/09/23 09:15 -: Chlamydia screen: negative, Gonorrhea screen: negative and Urine: negative -: PAP smear: Normal Genetic Screens: Cell-free DNA: Normal (normal female) and Alpha-fetoprotein: Normal External Labs -: Urine: negative Prior (ies) Past Pregnancies Del. Date GA/Weeks Labor Lgth Wt Sex Route Outcome Anesthesia Place Delv Breastfeed Preg Comp Name 06/08/20 40+2 40 8 lb 12 oz Female vaginal live - full te rm [facility] still breast feeding none Lisette 12/17/21 39.2 8 Male live - full term epidural [facility] none Ghanshyam 03/30/23 4 spontaneous Delivery Date: 06/08/20 Last Updated by: Lili Cage R.N. [facility] - dx Laryngomalacia, contractions, Induced Evaluation Evaluation Baseline heart rate: 140 Variability: Moderate (11-25) monitor accelerations: Present Monitor Decelerations: Absent Uterine Contraction Intensity: Mild Status: Category l Dilation (cm): 3 Effacement (%): 80 Dilation: 3-4 cm Effacement: >/=80% station: -1 Position of cervix: posterior Consistency: medium Rubin score: 8 PFSH Medical History (Updated 12/23/23 @ 09:33 by Enedina Gray MD) Fecal urgency Infertility (10/2018) Family history of colon cancer in mother Fracture of multiple toes Finger fracture Fractures Chicken pox (~1995) Surgical History (Updated 04/30/23 @ 11:10 by Analia Hairston RN) History of tonsillectomy H/O wisdom tooth extraction (~2005) Anesthesia Torn medial meniscus (~03/2011) Family History (Updated 04/30/23 @ 11:13 by Analia Hairston RN) Father Diverticulitis Asthma Diverticulosis Mother Colon cancer PCOS (polycystic ovarian syndrome) Diabetes mellitus Grandfather Diabetes mellitus History of heart disease Hypertension Colon cancer Grandmother Diabetes mellitus Hypertension Grandfather Hepatic necrosis Alcoholic Grandmother Hypertension Family estrangement Altered cardiac tissue perfusion Brother No known health problems Family/Other Diabetes mellitus Social History marital status: number of children: 2 household members: spouse and children lives independently: Yes caregiver/support person: Yes housing: house pets and animals: Yes (cat, managing litter box) education level: master's degree ([employer]) occupational status: employed current occupational exposures/hazards: No Previous occupational history: [employer] special etta needs: No travel history: over 6 months ago seatbelt use: always helmet use: Yes water heater temp set < 120 deg: Yes working smoke detector in home: Yes fire extinguisher in home: Yes carbon monox detector in home: Yes firearms in home: No do you feel safe at home: Yes Smoking Status: Never smoker second hand exposure: No alcohol intake: former (occasionally when not ) substance use type: does not use during the past year weight has: remained stable well-balanced diet: daily or most days daily servings fruits/ve or more times/day caffeine: Yes (AM cup coffee) Type(s) of exercise: walking, bicycling and other (hiking) Meds Home Medications and Allergies Home Medications Medication Instructions Recorded Confirmed Type prenat.vits,kristian,ahg-tmft-[id number] 1 tab PO DAILY 10/03/19 12/23/23 History fenofibric acid (choline) 45 mg 45 mg PO DAILY 04/30/23 12/23/23 History capsule,delayed release progesterone micronized 100 mg 100 mg PO BID #60 caps 04/30/23 12/23/23 Rx capsule ondansetron 4 mg disintegrating 4 mg PO Q6H PRN nausea and 05/25/23 12/23/23 Rx tablet vomiting #20 tabs Allergies Allergy/AdvReac Type Severity Reaction Status Date / Time Sulfa (Sulfonamide Allergy Intermediate hives Verified 12/23/23 09:12 Antibiotics) OB Exam Narrative Exam Narrative: Generally: Patient is sitting up in bed, no acute distress Fundal height: 40 cm Estimated weight: 8 lb Extremities: Trace edema Ultrasound: Vertex presentation Objective Labs 12/30/23 15:00 Labs: Laboratory Results - last 24 hr 12/30/23 15:00 WBC 9.2 RBC 4.33 Hgb 14.1 Hct 40.2 MCV 92.8 MCH 32.6 MCHC 35.2 RDW 13.1 Plt Count 273 Neut % (Auto) 75.4 H Lymph % (Auto) 19.3 L Bennett % (Auto) 4.5 Eos % (Auto) 0.3 L Baso % (Auto) 0.5 Neut # (Auto) 6900 Lymph # (Auto) 1800 Bennett # (Auto) 400 Eos # (Auto) 0 Baso # (Auto) 0 Blood Type O Positive Antibody Screen Negative Assessment and Plan Assessment and Plan Assessment and Plan narrative: Assessment: 33-year-old 4 para 2 at 39 weeks' gestation Vertex presentation by ultrasound GBS negative Plan: Induction of labor with Pitocin AROM Epidural as necessary Expected management to spontaneous vaginal delivery Time-Based Coding :: [TOTAL MINUTES] spent with patient and on the chart (including review of chart, obtaining history, exam, reviewing outside data, placing orders, documenting exam and treatment plan, and counseling patient) on [DATE].
--- NOTE | 2023-12-30 19:22 | PM.OBPNLAB ---
Date/Time Date Patient Seen: 12/30/23 Time Patient Seen: 19:22 Pain Control Pain control: tolerating well Pelvic Exam Dilation (cm): 3 Effacement (%): 80 station: 0 Amniotic membrane status: Intact Contractions Contractions on admission: irregular Monitor mode: External Pitocin rate (mU/min): 8 Contraction frequency (min): 3 Contraction duration (min): 1 Contraction pattern: Regular Contraction intensity: Mild Status status: Category l Heart Rate Baseline: 140 Monitor Accelerations: Present Monitor Decelerations: Absent Monitor Variability: Moderate Assessment and Plan Assessment: induction ongoing Comments: AROM with small pink tinged fluid Expectant management to
--- NOTE | 2023-12-31 00:43 | PM.AN.REGBLK ---
Regional Block Pre-procedure Procedure: Continuous Lumbar Epidural for L&D Attending OB provider: Enedina Gray PMH/ROS narrative: 33yo female in labor requesting epidural. See pre-anesthesia evaluation for further details. Hx difficult epidural placement and PDPH with last . Pt does not want dural puncture or CSE with this epidural. ASA Class: II Labs: Hct 40.2 % (36-46) 12/30/23 15:00 Plt Count 273 X10^3/uL (150-400) 12/30/23 15:00 Medications: Current Medications Generic Name Dose Route Start Last Admin Trade Name Freq PRN Reason Stop Dose Admin Calcium Carbonate 1,000 mg 12/30/23 18:25 Calcium Carbonate 500 Mg Tab PO Q4HR PRN Dyspepsia Carboprost Tromethamine 250 mcg 12/30/23 15:22 Carboprost 250 Mcg/Ml Ampul IM Q90M PRN Bleeding Diphenhydramine HCl 25 mg 12/31/23 00:40 Diphenhydramine 50 Mg/Ml Vial IV Q10M PRN Pruritis Ephedrine Sulfate 10 mg 12/31/23 00:40 Ephedrine 50 Mg/Ml Vial IV Q5M PRN Blood pressure decrease more than 20% of baseline. Fentanyl 50 mcg 12/30/23 15:22 Fentanyl 100 Mcg/2 Ml Inj IV Q1H PRN Pain, Moderate (4-6) Oxytocin/Lactated Ringer's 30 unit in 500 mls @ 200 mls/hr 12/30/23 15:22 Oxytocin Premix IV CONT PRN Bleeding Protocol Tranexamic Acid 1,000 mg/ 100 mls @ 600 mls/hr 12/30/23 15:22 Sodium Chloride IV NOW PRN Bleeding Oxytocin/Lactated Ringer's 30 unit in 500 mls @ 2 mls/hr 12/30/23 15:30 12/30/23 16:13 Oxytocin Premix IV 2 milliunit/min TITRATE NARENDRA 2 mls/hr Administration Protocol 2 MILLIUNIT/MIN Lactated Ringer's 1,000 mls @ 100 mls/hr 12/30/23 15:30 12/30/23 16:09 Lactated Ringers IV 12/31/23 01:29 100 mls/hr CONT NARENDRA Administration FENT 2MCG/ML BUPIV 0.125% EPI 200 mcg in 100 mls @ 6 mls/hr 12/31/23 00:45 Fentanyl/Bupiv/Ns 2mcg/Ml - 0.125% EPIDURAL CONT NARENDRA Lidocaine HCl 20 ml 12/30/23 15:22 Lidocaine 1% 20 Ml INJ INTRA-OP PRN Post Delivery Methylergonovine Maleate 0.2 mg 12/30/23 15:22 Methylergonovine 0.2 Mg Tablet PO Q6HR PRN Heavy Bleeding Methylergonovine Maleate 0.2 mg 12/30/23 15:22 Methylergonovine 0.2 Mg/Ml Vial IM NOW PRN Bleeding Mineral Oil 30 ml 12/30/23 15:22 Mineral Oil 30 Ml Udc TOP PRN PRN Version Misoprostol 800 mcg 12/30/23 15:22 Misoprostol 200 Mcg Tablet SC NOW PRN Bleeding Misoprostol 400 mcg 12/30/23 15:22 Misoprostol 200 Mcg Tablet SL NOW PRN Bleeding Nalbuphine HCl 2.5 mg 12/31/23 00:40 Nalbuphine 20 Mg/Ml Ampul IV Q10M PRN Pruritis Naloxone HCl 0.2 mg 12/30/23 15:22 Naloxone 0.4 Mg/Ml Vial IV Q2MIN PRN Opiate Reversal Ondansetron HCl 4 mg 12/30/23 18:25 Ondansetron 4 Mg/2 Ml Inj IV Q6HR PRN Nausea And Vomiting Oxytocin 10 unit 12/30/23 15:22 Oxytocin 10 Unit/Ml Vial IM NOW PRN Bleeding Allergies: Allergies Allergy/AdvReac Type Severity Reaction Status Date / Time Sulfa (Sulfonamide Allergy Intermediate hives Verified 12/23/23 09:12 Antibiotics) Procedure Insertion date: 12/31/23 Insertion time: 00:11 Prep/Local: 1% lidocaine (Chloraprep) Interspace: L3-4 Patient position: sitting Needle: 18 gauge Blanco Loss of resistance with: saline JUDY at (cm): 7 Catheter placed at SKIN (cm): 15 Catheter in SPACE (cm): 8 Insertion: No CSF, No Blood, No Paresthesia with insertion, No Paresthesia with injection and No Test dose reaction Initial Medications TEST DOSE time: 00:12 TEST DOSE: 1.5% lidocaine with epinephrine 1:200k (mL): 3 BOLUS DOSE time: 00:14 BOLUS DOSE (mL): 7 BOLUS DOSE med: other (2 ml same as test dose followed by 5 ml of 2% lidocaine PF) Infusion INFUSION: 0.125% bupivacaine and with fentanyl 2 mcg/mL Initial rate (mL/hr): 10 Subsequent interventions: Difficult placement, requiring about 45 minutes and three different locations with multiple redirections to find an opening. Pt tolerated procedure well. Time-out 23:34, pump started 00:29. Pt reports she did not feel her contraction at the time epidural infusion started. Able to move BLE with one leg heavier and more numb than the other. Post-procedure Anesthesia date START: 12/30/23 Anesthesia time START: 23:34 Anesthesia date END: 12/31/23 Anesthesia time END: 02:02 Post-procedure Anesthesia Assessment: Yes CV function: HR/BP stable, Yes Resp function: RR/sat/airway adequate, Yes Post-op hydration adequate, Yes Pain control adequate, Yes Nausea & vomiting absent, Yes Temperature > 36 C, Yes Mental status appropriate and No Anesthesia complications
--- NOTE | 2023-12-31 02:23 | P.PCNOB_ITS ---
Events: Labor Induction Labor & Delivery Delivery date: 12/31/23 Intrapartal Events: None Cervical ripening method: none Induction method: per pitocin protocol Delivery augmentation: rupture of membranes Delivery monitor: external FHT and external uterine Route of delivery: Episiotomy description: None L&D Laceration Description: Labial (right) Delivery repair: chromic Quantitative Blood Loss: 200 Anesthesia Type: Epidural and Local Complications: None Narrative: Patient complete and pushed for 9 minutes. At 2:02 am.., a live female delivered spontaneously in the EMILIANO presentation, over an intact perineum. No nuchal cord. The remainder of the body delivered without difficulty and was placed on mom's abdomen. The cord was double clamped and cut after it stopped pulsing. Cord bloods were obtained. Pitocin was given in the IV fluids. The placenta delivered intact with a three-vessel cord at 2:07 am. The fundus was massaged to firm. The perineum was inspected and there was a small right labial laceration which was repaired with 3-0 Vicryl in a running fashion. Hemostasis was achieved. weight 7 lb 5.5 oz. Apgars 9 at 1 minute and 9 at 5 minutes. Epidural analgesia. . Mom and stable to recovery. [place] Baby 1: Infant gender: Female Presentation: vertex Position: Left Occiput Anterior Placenta delivery description: Spontaneous Cord Vessel Description: 3 Vessels and Clamped/Cut (after cord stopped pulsing) score (1 min): 9 score (5 min): 9 weight: 7 lb 5.5 oz Plan for aftercare: Routine care
[2023-12-31] MEDS: IBUPROFEN 600 MG TABLET PO ×3 (04:41→17:29)
[2023-12-31] MEDS: DOCUSATE 100 MG CAPSULE PO (09:01)
[2023-12-31] MEDS: PRENATAL VIT,CALC/IRON/FOLIC 1 TABLET 1 TAB PO (09:01)
[2023-12-31] MEDS: WITCH HAZEL/GLYCERIN PADS 1 EACH TOP (11:16)
[2023-12-31] MEDS: DERMOPLAST SPRAY 20% 60 ML 1 SPRAY TOP (11:16)
== END 2023-12-31 21:25 | disposition home or self-care (01) | DRG 807 ==
PROVIDERS: Admitting Provider Obstetrics & Gynecology; Family Provider Family Medicine; PCP Family Medicine; Referring Provider Obstetrics & Gynecology; Visit Provider Obstetrics & Gynecology
DX: O70.0 First degree perineal laceration during delivery (principal); Z37.0 Single live birth; Z3A.39 39 weeks gestation of pregnancy
CPT/HCPCS: 36415; 59050; 76815; 85025; 86850; 86900; 86901; G0379; J2590